=== PATIENT | male | born 1985 | race Caucasian/White ===

== ENCOUNTER 2019-05-27 22:15 | Emergency (ER) | payer MEDICAID ==
[~2019-05-27] VITALS: Ht 172.7 cm; Wt 59.0 kg
--- NOTE | 2019-05-27 22:45 | NUR ---
Dr. Danielle at bedside for MSE
[2019-05-27] MEDS ORDERED: IV NS 1000 ML 1,000 ML IV ONE (23:00)
[2019-05-27] MEDS ORDERED: THIAMINE HCL 200 MG/2 ML VIAL IV ONE (23:00)
[2019-05-27] MEDS ORDERED: FOLIC ACID 5 MG/ML VIAL IV ONE ×2 (23:00→23:06)
[2019-05-27] MEDS ORDERED: THIAMINE HCL 200 MG/2 ML VIAL ONE (23:06)
[2019-05-27] MEDS ORDERED: MAGNESIUM SULFATE/D5W 100 ML ONE ×2 (23:06→23:22)
[2019-05-27 23:07] LABS: BASOPHILS % (AUTO) 0.4 % (0.0-2.0); EOSINOPHILS % (AUTO) 0.2 % (0.0-7.0); HEMATOCRIT 41.7 % (36.7-47.1); LYMPHOCYTES # (AUTO) 1.9 K/uL (20.0-40.0); LYMPHOCYTES % (AUTO) 16.5 % (20.5-51.5); MEAN CORPUSCULAR HEMOGLOBIN 28.6 uug (23.8-33.4); MEAN CORPUSCULAR HGB CONC 34 g/dL (32.5-36.3); MEAN CORPUSCULAR VOLUME 85.1 fL (73.0-96.2); MONOCYTES # (AUTO) 0.6 K/uL (2.0-10.0); MONOCYTES % (AUTO) 5.4 % (0.0-11.0); NEUTROPHILS # (AUTO) 8.8 K/uL (1.8-8.9); NEUTROPHILS % (AUTO) 77.5 % (38.5-71.5); PLATELET COUNT (AUTO) 249 K/uL (152-348); RED BLOOD CELL COUNT(AUTO) 4.91 MIL/uL (4.06-5.63); WHITE BLOOD COUNT (AUTO) 11.4 K/uL (3.6-10.2)
[2019-05-27] MEDS: MAGNESIUM SULFATE/D5W 100 ML IV SCH ×2 (23:15→23:17)
[2019-05-27 23:16] LABS: ALANINE AMINOTRANSFERASE 23 U/L (16-63); ALKALINE PHOSPHATASE 82 U/L (50-136); ASPARTATE AMINOTRANSFERASE 11 U/L (15-37); BILIRUBIN,DIRECT 0.1 mg/dL (0.0-0.2); BILIRUBIN,TOTAL 0.3 mg/dL (0.2-1.0); CARBON DIOXIDE 24 mmol/L (21-32); CHLORIDE 104 mmol/L (98-107); CREATININE 0.7 mg/dL (0.6-1.3); GLUCOSE 96 mg/dL (74-106); POTASSIUM 3.8 mmol/L (3.5-5.1); TOTAL PROTEIN, SERUM 7.2 g/dL (6.4-8.2); UREA NITROGEN, BLOOD 16 mg/dL (7-18)
--- NOTE | 2019-05-27 23:45 | NUR ---
Patient ambulating to bathroom with steady gait
--- NOTE | 2019-05-27 23:46 | NUR ---
Provided patient cup for urine sample. given instructions on how to give urine sample. Patient verbalized understanding.
--- NOTE | 2019-05-27 23:48 | NUR ---
Unable to collect urine. patient states he forgot he needed to collect urine
[2019-05-28] MEDS ORDERED: CLONIDINE HCL 0.1 MG TABLET ONE (00:08)
[2019-05-28] MEDS ORDERED: CLONIDINE HCL 0.1 MG TABLET PO ONE (00:15)
[2019-05-28 00:27] LABS: ETHANOL < 3 MG/DL (0-0)
--- NOTE | 2019-05-28 01:01 | NUR ---
Patient in bed sleeping but easily arousable. Breathing even and unlabored. NAD noted
--- NOTE | 2019-05-28 01:57 | NUR ---
IV removed. Catheter intact and site benign. Pressure and 4x4 gauze applied to site. No bleeding noted. Patient discharged to home in stable conditon. Written and verbal after care instructions given. Patient verbalizes understanding of instructions. patient ambulating with steady gait
[2019-05-28 01:58] VITALS: BP 115/63
== END 2019-05-28 01:57 | disposition home or self-care (01) ==
LOC: ER 22:17
DX: F11.23 Opioid dependence with withdrawal (principal); F15.10 Other stimulant abuse, uncomplicated; F17.200 Nicotine dependence, unspecified, uncomplicated
CPT/HCPCS: 36415; 80048; 80076; 85025; 93005; 96365; 96375; 99284; G0480; J3411; J3475 ×2; J3490; A4663; J7030